=== PATIENT | female | born 1955 | race Caucasian/White ===

== ENCOUNTER 2022-03-02 14:00 | Emergency (ER) | payer BC ==
[~2022-03-02] VITALS: Ht 167.6 cm; Wt 75.0 kg
[2022-03-02 14:02] VITALS: TEMP 97.7
[2022-03-02 14:45] LABS: BASO # 0.1 K/mm3 (0.0-0.2); BASO % 0.8 % (0.0-2.0); EOS # 0.3 K/mm3 (0.0-0.7); EOS % 2.4 % (0.0-4.0); GRAN # 7.9 K/mm3 (1.4-6.5); GRAN % 74.3 % (42.2-75.2); HEMATOCRIT 42.5 % (37.0-47.0); HEMOGLOBIN 14.6 g/dl (12.5-16.0); LYMPH # 1.8 K/mm3 (1.2-3.4); LYMPH % 17.2 % (20.0-51.0); MEAN CELL VOLUME 86 fl (80.0-100.0); MEAN CORPUSCULAR HEMOGLOBIN 29 pg (27-31); MEAN CORPUSCULAR HGB CONC 34 g/dl (33.0-37.0); MEAN PLATELET VOLUME 9.1 fl (7.4-10.4); MONO # 0.5 K/mm3 (0.1-0.6); MONO % 5.1 % (1.7-9.3); PLATELET COUNT 326 K/mm3 (130-400); RED BLOOD COUNT 4.97 M/mm3 (4.10-5.30); REDCELL DISTRIBUTION WIDTH-CV 12.6 % (11.5-14.5)
[2022-03-02 15:01] LABS: ALANINE AMINOTRANSFERASE 14 U/L (0-55); ALBUMIN 3.7 gm/dL (3.4-4.8); ALKALINE PHOSPHATASE 89 U/L (40-150); ANION GAP 11 mmol/L (7-16); AST,SGOT 10 U/L (5-34); BILIRUBIN,TOTAL 0.2 mg/dL (0.2-1.2); BLOOD UREA NITROGEN 10 mg/dL (10-20); CALCIUM 9.4 mg/dL (8.4-10.2); CARBON DIOXIDE 25 mmol/L (23-31); CHLORIDE 105 mmol/L (98-107); CREATININE, serum 0.73 mg/dL (0.57-1.11); GLUCOSE 104 mg/dL (70-99); POTASSIUM 3.5 mmol/L (3.5-4.5); SODIUM 141 mmol/L (136-145); TOTAL PROTEIN 7.4 gm/dL (6.2-8.1)
[2022-03-02 15:07] LABS: TROPONIN-I < 0.010 ng/mL (0.00-0.033)
[2022-03-02 16:09] VITALS: BP 119/102; PULSE 93
== END 2022-03-02 16:19 | disposition home or self-care (01) ==
LOC: COL.ER 14:00
PROVIDERS: Physician Assistant
DX: R55 Syncope and collapse (principal); F17.200 Nicotine dependence, unspecified, uncomplicated; Z28.310 Unvaccinated for COVID-19